=== PATIENT | male | born 1975 | race African-American/Black ===

== ENCOUNTER 2022-01-12 19:30 | Outpatient (CLI) | payer OTHER | END 2022-01-12 19:31 | disposition home or self-care (01) | LOC: SLEEPLAB 19:30 | PROVIDERS: ATTEND Family Medicine | DX: G47.33 Obstructive sleep apnea (adult) (pediatric) (principal); R53.83 Other fatigue; I10 Essential (primary) hypertension; E11.9 Type 2 diabetes mellitus without complications; R06.83 Snoring; G47.10 Hypersomnia, unspecified; G47.00 Insomnia, unspecified; R09.02 Hypoxemia | CPT/HCPCS: 95811 ==